=== PATIENT | female | born 1970 | race Caucasian/White ===

== ENCOUNTER 2021-02-10 15:04 | Outpatient (CLI) | payer OTHER, SELFPAY ==
--- NOTE | 2021-02-10 15:11 | MM_ITS ---
WS: [id number] BILATERAL DIGITAL SCREENING MAMMOGRAPHY WITH CAD CLINICAL INFORMATION: SCREENING HISTORY: Screening mammogram. No current complaints. COMPARISON: TECHNIQUE: Bilateral CC and MLO views. FINDINGS: The breasts are composed of heterogeneous fibroglandular density tissue, which can limit the detectio n of small underlying mass lesions. No suspicious mass, asymmetry, calcifications, or architectural d istortion. No evidence of malignancy. MM/[place] [id number] IMPRESSION: BI-RADS: 1-Negative FOLLOW UP: 1 Year Follow-up Recommend return to annual screening mammography.
== END 2021-02-10 15:05 | disposition home or self-care (01) ==
PROVIDERS: PCP Family Medicine; Visit Provider Family Medicine
DX: Z12.31 Encounter for screening mammogram for malignant neoplasm of breast (principal)
CPT/HCPCS: 77067

== ENCOUNTER 2022-04-19 08:15 | Outpatient (CLI) | payer OTHER, SELFPAY ==
--- NOTE | 2022-04-19 08:23 | MM_ITS ---
WS: [id number] BILATERAL SCREENING DIGITAL BREAST TOMOSYNTHESIS MAMMOGRAM WITH CAD HISTORY: SCREENING COMPARISON: 02/10/2021 and 11/21/2017 Bilateral CC and MLO views with tomosynthesis and synthetic mammography submitted. Computer aided det ection analyzed. Breast composition: The breasts are heterogeneously dense, which may obscure small masses. No suspici ous masses, microcalcifications or architectural distortion. MM/[place] [id number] IMPRESSION: BI-RADS: 1-Negative FOLLOW UP: 1 Year Follow-up
== END 2022-04-19 08:16 | disposition home or self-care (01) ==
PROVIDERS: PCP Family Medicine; Visit Provider Family Medicine
DX: Z12.31 Encounter for screening mammogram for malignant neoplasm of breast (principal)
CPT/HCPCS: 77063; 77067

== ENCOUNTER 2023-04-20 12:57 | Outpatient (CLI) | payer OTHER, SELFPAY ==
--- NOTE | 2023-04-20 13:12 | MM_ITS ---
WS: [id number] BILATERAL 3D TOMOSYNTHESIS DIGITAL SCREENING MAMMOGRAPHY WITH CAD CLINICAL INFORMATION: SCREENING HISTORY: Screening mammogram. No current complaints. COMPARISON: 2021 TECHNIQUE: Bilateral CC and MLO views. FINDINGS: The breasts are composed of heterogeneous fibroglandular density tissue, which can limit the detectio n of small underlying mass lesions. No suspicious mass, asymmetry, calcifications, or architectural d istortion. No evidence of malignancy. Lucent centered calcification RIGHT breast. MM/[place] [id number] IMPRESSION: BI-RADS: 2-Benign FOLLOW UP: 1 Year Follow-up Recommend return to annual screening mammography.
== END 2023-04-20 12:58 | disposition home or self-care (01) ==
LOC: RAD 13:04 → MOBLMAM 13:12
PROVIDERS: PCP Family Medicine; Visit Provider Family Medicine
DX: Z12.31 Encounter for screening mammogram for malignant neoplasm of breast (principal)
CPT/HCPCS: 77063; 77067

== ENCOUNTER → 2023-05-01 16:13 | Outpatient (BNVA) | payer OTHER, SELFPAY | PROVIDERS: PCP Family Medicine; Visit Provider Obstetrics & Gynecology | DX: Z12.4 Encounter for screening for malignant neoplasm of cervix (principal) | CPT/HCPCS: 87624 ==

== ENCOUNTER 2025-05-01 08:13 | Outpatient (CLI) | payer OTHER, SELFPAY ==
--- NOTE | 2025-05-01 08:20 | MM_ITS ---
WS: [id number] SCREENING DIGITAL BREAST TOMOSYNTHESIS MAMMOGRAM WITH CAD HISTORY: SCREENING COMPARISON: 04/19/2022, 04/20/2023, 02/10/2021 Bilateral CC and MLO with tomosynthesis and synthetic mammography submitted. Computer aided detection analyzed. Breast composition: The breasts are heterogeneously dense, which may obscure small masses. Partially posterior high density mass measuring 9 x 9 x 9 mm in the central RIGHT breast at a middle depth. Not definitely seen on the prior exams. No suspicious grouping of calcifications. No distortion. MM/MM scr BI tomosynthesis [id number] IMPRESSION: BI-RADS: 0 - Incomplete: Need additional imaging evaluation FOLLOW UP: Need Additional Imaging RIGHT breast: Spot compression views (CC and MLO). True ML. Ultrasound to follo w if abnormality persists.
== END 2025-05-01 08:14 | disposition home or self-care (01) ==
LOC: RAD 08:15
PROVIDERS: PCP Family Medicine; Visit Provider Family Medicine
DX: Z12.31 Encounter for screening mammogram for malignant neoplasm of breast (principal); R92.333 Mammographic heterogeneous density, bilateral breasts; R92.8 Other abnormal and inconclusive findings on diagnostic imaging of breast
CPT/HCPCS: 77063; 77067

== ENCOUNTER 2025-06-01 08:08 | Outpatient (CLI) | payer OTHER, SELFPAY ==
--- NOTE | 2025-06-01 08:14 | MM_ITS ---
WS: [id number] ADDITIONAL VIEWS RIGHT MAMMOGRAM WITH DIGITAL BREAST TOMOSYNTHESIS. RIGHT BREAST ULTRASOUND HISTORY: INCONCLUSIVE MAMMOGRAM COMPARISON: 05/01/2025, 04/20/2023, 04/19/2022 RIGHT MAMMOGRAM: Spot compression views and true ML with digital breast tomosynthesis and SM. Breast composition: The breasts are heterogeneously dense, which may obscure small masses. Previously described partially obscured mass in the central RIGHT breast is not definitely identified. Very dense fibroglandular tissue with benign adjacent calcifications. Ultrasound will be performed in the area of increased density. RIGHT BREAST ULTRASOUND 2-D and color Doppler imaging submitted. Numerous prominent retroareolar ducts. No debris within the ducts and no increased vascularity. There is an ovoid minimally complex cyst in the RIGHT breast at 6:00, 1 cm from the nipple. Cyst measures 0.7 x 0.8 x 0.3 cm and corresponds to the mammographic abnormality. MM/MM diag RT tomosynthesis [id number] IMPRESSION: BI-RADS: 2 - Benign FOLLOW UP: 1 Year Follow-up There is a minimally complex cyst in the RIGHT breast at 6:00 corresponding to the mammographic abnormality of 05/01/2025. Return to annual screening mammograph y.
== END 2025-06-01 08:09 | disposition home or self-care (01) ==
LOC: RAD 08:09
PROVIDERS: PCP Family Medicine; Visit Provider Family Medicine
DX: R92.2 Inconclusive mammogram (principal); N63.14 Unspecified lump in the right breast, lower inner quadrant; R92.333 Mammographic heterogeneous density, bilateral breasts
CPT/HCPCS: 76642; 77061; G0279